=== PATIENT | male | born 1980 | race Caucasian/White ===

== ENCOUNTER 2017-08-10 14:04 | Emergency (ER) | payer MEDICAID, OTHER ==
[~2017-08-10] VITALS: Ht 185.4 cm; Wt 110.0 kg
[2017-08-10] MEDS ORDERED: KETOROLAC 30 MG/1 ML IM ONE (15:30)
[2017-08-10] MEDS ORDERED: CARISOPRODOL 350 MG TABLET PO ONE (15:30)
[2017-08-10] MEDS ORDERED: METOPROLOL TARTRATE 50 MG TABLET PO ONE (15:30)
[2017-08-10] MEDS ORDERED: CARISOPRODOL 350 MG TABLET ONE ×2 (15:34→16:47)
[2017-08-10] MEDS ORDERED: KETOROLAC 30 MG/1 ML ONE (15:34)
[2017-08-10] MEDS ORDERED: METOPROLOL TARTRATE 50 MG TABLET ONE (15:34)
[2017-08-10 15:48] LABS: BASOPHILS # (AUTO) 0.04 x10^3/uL (0-0.1); BASOPHILS % (AUTO) 1 % (0-1); EOSINOPHILS % (AUTO) 1 % (1-7); LYMPHOCYTES # (AUTO) 2.54 x10^3/uL (1-3.4); LYMPHOCYTES % (AUTO) 29 % (22-44); MD NO; MEAN CORPUSCULAR HEMOGLOBIN 29.1 pg (27.5-34.5); MEAN CORPUSCULAR HGB CONC 33.9 g/dL (33.2-36.2); MEAN PLATELET VOLUME 8.4 fL (7.4-10.4); MONOCYTES # (AUTO) 1.05 x10^3/uL (0.2-0.8); MONOCYTES % (AUTO) 12 % (2-9); NEUTROPHILS # (AUTO) 5.04 x10^3/uL (1.8-6.8); NEUTROPHILS % (AUTO) 57 % (42-75); PLATELET COUNT 318 x10^3/uL (130-400); RED BLOOD COUNT 6.65 x10^6/uL (4.38-5.82); RED CELL DISTRIBUTION WIDTH 13.4 % (9.4-14.8)
[2017-08-10 15:58] LABS: ALANINE AMINOTRANSFERASE 51 U/L (12-78); ALBUMIN 3.9 g/dL (3.4-5.0); ANION GAP 7 mmol/L (5-15); CALCIUM 8.7 mg/dL (8.5-10.1); CHLORIDE 106 mmol/L (98-107); CREATININE 0.92 mg/dL (0.7-1.3)
[2017-08-10 16:01] LABS: ALKALINE PHOSPHATASE 73 U/L (45-117); BILIRUBIN,TOTAL 0.5 mg/dL (0.2-1.0)
[2017-08-10 16:32] VITALS: BP 146/90
[2017-08-10] MEDS ORDERED: HYDROmorphone 2 MG/ML, 1ML ONE (16:47)
== END 2017-08-10 16:52 | disposition home or self-care (01) ==
LOC: ED 15:30
DX: M54.42 Lumbago with sciatica, left side (principal); I10 Essential (primary) hypertension; Z91.14 Patient's other noncompliance with medication regimen
CPT/HCPCS: 36415; 80053; 83605; 85025; 96372; 99284; J1885